=== PATIENT | male | born 1985 | race Caucasian/White ===

== ENCOUNTER 2016-08-13 14:51 | Emergency (ER) | payer BC ==
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
[~2016-08-13 14:51] MED LIST: LISINOPRIL; NORVASC; PREVACID PO
== END 2016-08-13 14:55 | disposition home or self-care (01) ==
LOC: CFTX 14:51
DX: S51.812A Laceration without foreign body of left forearm, initial encounter (principal); I10 Essential (primary) hypertension; V49.00XA Driver injured in collision with unspecified motor vehicles in nontraffic accident, initial encounter
CPT/HCPCS: 12001; 73090; 99283